=== PATIENT | male | born 1975 | race American Indian/Alaskan Native ===

== ENCOUNTER 2018-10-03 11:59 | Emergency (ER) | payer MEDICARE ==
[2018-10-03] MEDS ORDERED: ZOFRAN IV ONE (12:33)
[2018-10-03] MEDS ORDERED: NACL 0.9% 1000 ML 1,000 ML IV ONE (12:33)
[2018-10-03] MEDS ORDERED: ZOFRAN ODT PO ONE (12:35)
--- NOTE | 2018-10-03 12:36 | Event Note ---
ED Screening Note ED Screening Note: L FLANK PAIN HEMATURIA YEST AT PCP OFFICE ACTIVELY VOMITING IN TRIAGE RX NONE PMH NONE PSH NONE This initial assessment/diagnostic orders/clinical plan/treatment(s) is/are subject to change based on patients health status, clinical progression and re- assessment by fellow clinical providers in the ED. Further treatment and workup at subsequent clinical providers discretion. Patient/guardian urged not to elope from the ED as their condition may be serious if not clinically assessed and managed. Initial orders include: UA BLOOD CT NS/INT/ZOFRAN RO STONE EM MANAGER E [facility]
[2018-10-03] MEDS ORDERED: ZOFRAN ODT ONE (12:38)
[2018-10-03] MEDS ORDERED: TORADOL IV ONE (13:01)
[2018-10-03] MEDS ORDERED: MORPHINE IV ONE (13:01)
--- NOTE | 2018-10-03 13:05 | Emergency Department Report ---
ED Abdominal Pain HPI - General Chief Complaint: Nausea/Vomiting/Diarrhea Stated Complaint: SPITTING UP BLOOD/SOB Time Seen by Provider: 10/03/18 12:33 Source: patient Mode of arrival: Ambulatory Limitations: No Limitations - History of Present Illness Initial Comments: Vesicles a 43-year-old male without significant past medical history who presents with left flank pain and left lower quadrant pain since yesterday. Was evaluated by his PCP. Was told to he had traces of blood in urine. With so that he may have a possible kidney stone. He has continued vomiting. Denies chest pain. MD Complaint: flank pain -: Gradual, days(s) (1) Location: LLQ, L flank Severity: severe Severity scale (0 -10): 10 Quality: sharp Consistency: constant Improves With: nothing Worsens With: nothing Associated Symptoms: nausea, vomiting - Related Data Previous Rx's Medication Instructions Recorded Last Taken Type Promethazine [Phenergan] 25 mg PO Q6HR PRN #10 tab 10/03/18 Unknown Rx Allergies Allergy/AdvReac Type Severity Reaction Status Date / Time No Known Allergies Allergy Verified 10/03/18 12:01 ED Review of Systems ROS: Stated complaint: SPITTING UP BLOOD/SOB Other details as noted in HPI Comment: All other systems reviewed and negative Constitutional: denies: fever, malaise Respiratory: shortness of breath. denies: cough Gastrointestinal: abdominal pain, nausea, vomiting ED Past Medical Hx - Past Medical History Previous Medical History?: No - Surgical History Past Surgical History?: Yes Additional Surgical History: right arm - Social History Smoking Status: Never Smoker Substance Use Type: Marijuana - Medications Home Medications: Home Medications Medication Instructions Recorded Confirmed Last Taken Type Promethazine [Phenergan] 25 mg PO Q6HR PRN #10 tab 10/03/18 Unknown Rx ED Physical Exam - General Limitations: No Limitations General appearance: alert, in no apparent distress, other (appears uncomfortable) - Head Head exam: Present: atraumatic, normocephalic - Eye Eye exam: Present: normal appearance. Absent: scleral icterus, conjunctival injection - ENT ENT exam: Present: mucous membranes moist - Neck Neck exam: Present: normal inspection, full ROM - Respiratory Respiratory exam: Present: normal lung sounds bilaterally. Absent: respiratory distress, wheezes, rales, rhonchi - Cardiovascular Cardiovascular Exam: Present: regular rate, normal rhythm, normal heart sounds. Absent: systolic murmur, diastolic murmur, rubs, gallop - GI/Abdominal GI/Abdominal exam: Present: soft, normal bowel sounds. Absent: distended, tenderness, guarding, rebound - Rectal Rectal exam: Present: deferred - Extremities Exam Extremities exam: Present: normal inspection - Back Exam Back exam: Present: normal inspection - Neurological Exam Neurological exam: Present: alert, oriented X3 - Psychiatric Psychiatric exam: Present: normal affect, normal mood - Skin Skin exam: Present: warm, dry, intact, normal color. Absent: rash ED Course Vital Signs 10/03/18 12:33 Temperature 99 F Pulse Rate 99 H Respiratory 22 Rate Blood Pressure 115/85 [Right] O2 Sat by Pulse 98 Oximetry ED Medical Decision Making - Lab Data Result diagrams: 10/03/18 Unknown 10/03/18 Unknown - Radiology Data Radiology results: report reviewed CT chest abdomen pelvis without acute process without ureteral stone or inflammatory process - Medical Decision Making Mr. Dinero presents with left lower quadrant abdominal pain no evidence of inflammatory process such as acute diverticulitis. No indication of process such as renal stone. Onset of vomiting this morning. He did eat fast food last night. food poisoning is a consideration. I recommend a clear liquid diet. Prescribed promethazine Critical care attestation.: If time is entered above; I have spent that time in minutes in the direct care of this critically ill patient, excluding procedure time. ED Disposition Clinical Impression: Abdominal pain Disposition: DC-01 TO HOME OR SELFCARE Is pt being admited?: No Does the pt Need Aspirin: No Condition: Stable Instructions: Acute Abdominal Pain (ED), Acute Nausea and Vomiting (ED) Prescriptions: Promethazine [Phenergan] 25 mg PO Q6HR PRN #10 tab PRN Reason: Nausea
--- NOTE | 2018-10-03 13:09 | Emergency Department Report ---
ED General Adult HPI - General Chief complaint: Nausea/Vomiting/Diarrhea Stated complaint: SPITTING UP BLOOD/SOB Time Seen by Provider: 10/03/18 12:33 Source: patient Mode of arrival: Ambulatory Limitations: No Limitations - History of Present Illness Initial comments: Mr. Dinero presents with LLQ pain was told that he had traces of blood in urine by PCP on yesteryday. Has severe LLQ pain with vomiting nausea. Makes it hard to breathe. -: days(s) Location: abdomen Severity scale (0 -10): 10 Quality: sharp Consistency: constant Improves with: none Worsens with: none Associated Symptoms: nausea/vomiting - Related Data Allergies Allergy/AdvReac Type Severity Reaction Status Date / Time No Known Allergies Allergy Verified 10/03/18 12:01 ED Review of Systems ROS: Stated complaint: SPITTING UP BLOOD/SOB Other details as noted in HPI Comment: All other systems reviewed and negative Constitutional: denies: fever, malaise Respiratory: shortness of breath Gastrointestinal: abdominal pain, nausea, vomiting ED Past Medical Hx - Past Medical History Previous Medical History?: No - Surgical History Past Surgical History?: Yes Additional Surgical History: right arm - Social History Smoking Status: Never Smoker Substance Use Type: Marijuana ED Physical Exam - General Limitations: No Limitations General appearance: alert, in no apparent distress, other (appears uncomfortable) - Head Head exam: Present: atraumatic, normocephalic - Eye Eye exam: Present: normal appearance - ENT ENT exam: Present: mucous membranes moist - Neck Neck exam: Present: normal inspection, full ROM - Respiratory Respiratory exam: Present: normal lung sounds bilaterally. Absent: respiratory distress, wheezes, rales, rhonchi - Cardiovascular Cardiovascular Exam: Present: regular rate, normal rhythm, normal heart sounds. Absent: systolic murmur, diastolic murmur, rubs, gallop - GI/Abdominal GI/Abdominal exam: Present: soft, normal bowel sounds. Absent: distended, tenderness, guarding, rebound - Rectal Rectal exam: Present: deferred - Extremities Exam Extremities exam: Present: normal inspection - Back Exam Back exam: Present: normal inspection - Neurological Exam Neurological exam: Present: alert, oriented X3 - Psychiatric Psychiatric exam: Present: normal affect, normal mood - Skin Skin exam: Present: warm, dry, intact, normal color. Absent: rash ED Course Vital Signs 10/03/18 12:33 Temperature 99 F Pulse Rate 99 H Respiratory 22 Rate Blood Pressure 115/85 [Right] O2 Sat by Pulse 98 Oximetry Critical care attestation.: If time is entered above; I have spent that time in minutes in the direct care of this critically ill patient, excluding procedure time. ED Disposition Condition: Stable
[2018-10-03 13:11] LABS: Basophils % (Auto) 0.7 % (0.0-1.8); Eosinophils % (Auto) 0.3 % (0.0-4.3); Hemoglobin 14.7 gm/dl (11.8-15.2); Lymphocytes # (Auto) 2.1 K/mm3 (1.2-5.4); Lymphocytes % (Auto) 34.6 % (13.4-35.0); Mean Corpuscular HGB Conc 34 % (32-34); Mean Corpuscular Volume 90 fl (84-94); Monocytes # (Auto) 0.3 K/mm3 (0.0-0.8); Monocytes % (Auto) 5.7 % (0.0-7.3); Platelet Count 214 K/mm3 (140-440); Red Blood Count 4.79 M/mm3 (3.65-5.03); Red Cell Distribution Width 12.8 % (13.2-15.2)
[2018-10-03 13:34] LABS: Alanine Aminotransferase 16 units/L (7-56); Albumin 4.3 g/dL (3.9-5); BUN/Creatinine Ratio 11; Blood Urea Nitrogen 12 mg/dL (9-20); Calcium 9.4 mg/dL (8.4-10.2); Hemolysis Index 12
--- NOTE | 2018-10-03 14:14 | Cat Scan Report ---
CT CHEST WITHOUT CONTRAST: HISTORY: Dyspnea. COMPARISON: none. TECHNIQUE: Helical CT in 1.25mm intervals without IV contrast. Sagittal and coronal reformatted images. FINDINGS: Thyroid gland: Normal. Tracheobronchial tree: Normal. Esophagus: Normal. Heart: Normal. Pericardium: Normal. Mediastinum: Normal. Lung Abraham: Normal. Pleural Spaces: Normal. Musculoskeletal: Normal. IMPRESSION: Unremarkable CT chest without contrast.
[2018-10-03 14:23] LABS: Bilirubin,Urine NEG (Negative); Blood,Urine MOD (Negative); Color,Urine Yellow (Yellow); Mucus,Urine 3+ /HPF; Protein,Urine <15 mg/dL mg/dL (Negative)
--- NOTE | 2018-10-03 15:05 | Cat Scan Report ---
CT ABDOMEN PELVIS WITHOUT CONTRAST: HISTORY: Hematuria, left flank pain. COMPARISON: none. TECHNIQUE: Helical CT in 1.25mm intervals without IV contrast. Sagittal and coronal reconstructions. FINDINGS: Lung bases: Normal. Liver: Normal. Biliary system: Normal. Pancreas: Normal. Spleen: Normal. Kidneys/ureters/bladder: Normal. No evidence for nephrolithiasis or hydronephrosis Adrenal glands: Normal. Aorta: Normal. Intestines: Normal. Appendix: Normal. Pelvic viscera: Normal. Ascites: None. Adenopathy: None. Musculoskeletal: Normal. IMPRESSION: Unremarkable CT scan of the abdomen and pelvis without contrast.
[2018-10-03] MEDS ORDERED: NORCO 5/325 PO ONE (15:19)
[2018-10-03 15:33] VITALS: BP 124/87
== END 2018-10-03 15:32 | disposition home or self-care (01) ==
LOC: ED 11:59
DX: R10.32 Left lower quadrant pain (principal); R11.2 Nausea with vomiting, unspecified; F12.90 Cannabis use, unspecified, uncomplicated
CPT/HCPCS: 36415; 71250; 74176; 80053; 81001; 83690; 85025; 96361; 96374; 96375; 99284; J1885; J2270; J2405; J7030; Q0162